=== PATIENT | male | born 1975 | race African-American/Black ===

== ENCOUNTER → 2023-03-08 07:09 | Outpatient (CLI) | payer OTHER, SELFPAY ==
--- NOTE | ~2023-03-08 | MR_ITS ---
MRI of the lumbar spine Clinical History: Back pain Technique: Axial T2-weighted images, and sagittal T1-weighted, T2-weighted, and T2 fat-sat images wer e acquired. Findings: There is no fracture or sublocation of the lumbar spine. Vertebral bodies maintain normal h eight and alignment. No suspicious bone marrow signal abnormality seen. At L1-L2, L2-L3, L3-L4, intervertebral discs maintain normal signal and position. No disc bulge or he rniation T levels. There is mild facet arthropathy at these levels. No spinal canal stenosis or neura l foraminal narrowing at these levels. At L4-L5, there is mild disc desiccation with minimal disc bulge. There is moderate facet arthropathy . No central canal stenosis. There is minimal bilateral neural foraminal narrowing, right worse than left. At L5-S1, there is minimal disc bulge and moderate facet arthropathy. No central canal stenosis. Ther e is mild bilateral neural foraminal narrowing. Paravertebral soft tissues are unremarkable. Impression: Mild degenerative spondylosis of the lower lumbar spine, as detailed above. Reviewed, dictated and finalized at location . ON HAND Impression: Mild degenerative spondylosis of the lower lumbar spine, as detailed above.
--- NOTE | ~2023-03-08 | XR_ITS ---
XR lumbar spine 2-3V DATE: 03/08/2023 07:56 INDICATION: Neck pain, right sciatica TECHNIQUE: AP, lateral, coned lateral lumbosacral views COMPARISON: None FINDINGS: Mild thoracolumbar dextroscoliosis. No fracture or bone destruction, spondylolysis or spondylolisthesis is evident. Lumbar lumbosacral in terspaces appear well preserved. The lumbar pedicles are intact. The sacroiliac joints are intact. IMPRESSION: Mild thoracolumbar dextro scoliosis Reviewed, dictated and finalized at location B. EWATER OPERATOR
== END ==
PROVIDERS: PCP Emergency Medicine; Visit Provider Emergency Medicine
DX: M54.41 Lumbago with sciatica, right side (principal); M41.85 Other forms of scoliosis, thoracolumbar region; M43.06 Spondylolysis, lumbar region
CPT/HCPCS: 72100; 72148

== ENCOUNTER 2023-04-05 08:13 | Outpatient (CLI) | payer OTHER, SELFPAY ==
--- NOTE | ~2023-04-05 | NM_ITS ---
EXAM: NM gastric emptying study DATE: 04/05/2023 14:49 INDICATION: Gastroparesis. TECHNIQUE: A gastric emptying study was performed using the methodology of Yovana CARRERA, et al. J Nucl Med 2007; 48:568-572. The patient was given a meal consisting of 2 scrambled eggs labeled with 0.993 mCi Tc-99m sulfur colloid, 2 slices of toast, two packages of jam, and approximately 120 mL of water . Simultaneous anterior and posterior 1-min images of the abdomen were obtained with the patient supi ne at multiple time points over a total period of 4 hours. The geometric mean of anterior and posteri or views was determined, and the percentage retention was calculated for each time point. COMPARISON: None. FINDINGS: Gastric retention of the radiotracer-labeled meal was 47%, 21%, and 2% at the 1-hour, 2-ho ur, and 4-hour time points, respectively. With this technique, apparent rapid gastric emptying is sug gested by <30% gastric retention at 1 hour. Delayed gastric emptying is defined by gastric retention of >90% at 1 hour, >60% retention at 2 hours, or >10% retention at 4 hours. IMPRESSION: 1. Normal gastric emptying. Reviewed, dictated and finalized at location A. SPORTATION PROGRAM DIRECTOR IMPRESSION: 1. Normal gastric emptying.
== END 2023-04-05 08:14 | disposition home or self-care (01) ==
PROVIDERS: PCP Emergency Medicine; Visit Provider Emergency Medicine
DX: K31.84 Gastroparesis (principal)
CPT/HCPCS: 78264; A9541

== ENCOUNTER 2023-08-13 12:15 | Outpatient (CLI) | payer OTHER, SELFPAY ==
--- NOTE | ~2023-08-13 | XR_ITS ---
EXAMINATION: [id number] DATE: 08/13/2023 12:28 INDICATION: Left knee pain. TECHNIQUE: 2 views of left knee standing were obtained. COMPARISON: None. FINDINGS: Bone alignment is normal. No fracture. There is mild osteoarthritis of patellofemoral lizzy rtment. No knee joint effusion. IMPRESSION: 1. Mild left knee osteoarthritis. Reviewed, dictated and finalized at location A.
== END 2023-08-13 12:16 ==
PROVIDERS: PCP Emergency Medicine; Visit Provider Emergency Medicine
DX: M17.12 Unilateral primary osteoarthritis, left knee (principal)
CPT/HCPCS: 73560